=== PATIENT | female | born 1930 | race Caucasian/White ===

== ENCOUNTER → 2016-10-25 | Outpatient (CLI) | payer MEDICARE, OTHER ==
[2016-06-21 18:05] VITALS: BP 142/76
[~2016-10-25] MED LIST: ACET325T9 PO; ALEN70TA3 PO; ASPI81TA44 PO; CALC600T PO; CHOL100013 PO; CIPR500T94 PO; DIGO125T PO; DOCU-27 PO; DOXA2TAB PO; GABA-585 PO; GUAI118L3 PO; HYDR-2666 PO; HYDROCORTISONE28 G1 TP; JOINT FLEX TOP; LIDO700A4 TD; MAGN400O4 PO; METO100T2 PO; MULT-658 PO; NITR100C62 PO; SIME125T17 PO; TEMA15CA PO; WARF4TAB PO; [UNRECOGNIZED DRUG - CODE] PO
[2016-10-25 10:34] LABS: BACTERIA,URINE FEW /HPF (0-FEW); BILIRUBIN,URINE NEG (NEG); CLARITY,URINE HAZY; COLOR,URINE YELLOW; GLUCOSE,URINE NEG (NEG); HYALINE CASTS, URINE OCC /HPF; NITRITE,URINE NEG (NEG); SQUAMOUS EPITHELIAL CELL,UR OCC /LPF; UROBILINOGEN,URINE 0.2 mg/dL (0.2 mg/dL)
== END | disposition home or self-care (01) ==
LOC: SPEC 10:19
PROVIDERS: ATTEND Internal Medicine
DX: N39.0 Urinary tract infection, site not specified (principal)
CPT/HCPCS: 81001; 87086

== ENCOUNTER → 2016-11-13 | Outpatient (CLI) | payer MEDICARE, OTHER ==
[2016-06-21 18:05] VITALS: BP 142/76
== END | disposition home or self-care (01) ==
LOC: SPEC 12:57
PROVIDERS: ATTEND Internal Medicine
DX: E63.9 Nutritional deficiency, unspecified (principal)
CPT/HCPCS: 36415; 82306

== ENCOUNTER → 2016-12-07 | Outpatient (CLI) | payer MEDICARE, OTHER ==
[2016-06-21 18:05] VITALS: BP 142/76
[~2016-12-07] MED LIST changes: +DOCU-109 PO; -DOCU-27 PO; -HYDR-2666 PO; +HYDR-2758 PO; -MAGN400O4 PO; +MAGN400O7 PO; -WARF4TAB PO; +WARF4TAB68 PO
[2016-12-07 15:24] LABS: BILIRUBIN,URINE NEG (NEG); CLARITY,URINE TURBID; COLOR,URINE YELLOW; GLUCOSE,URINE NEG (NEG)
[2016-12-07 15:25] LABS: BACTERIA,URINE MANY /HPF (0-FEW); NITRITE,URINE NEG (NEG); UROBILINOGEN,URINE 0.2 mg/dL (0.2 mg/dL); WBC,URINE TNTC /HPF (0-4)
== END | disposition home or self-care (01) ==
LOC: SPEC 14:55
PROVIDERS: ATTEND Internal Medicine
DX: N39.0 Urinary tract infection, site not specified (principal)
CPT/HCPCS: 81001; 87086

== ENCOUNTER → 2016-12-13 | Outpatient (CLI) | payer MEDICARE, OTHER ==
[2016-06-21 18:05] VITALS: BP 142/76
== END | disposition home or self-care (01) ==
LOC: SPEC 16:54
PROVIDERS: ATTEND Internal Medicine
DX: N18.9 Chronic kidney disease, unspecified (principal); N32.81 Overactive bladder; R33.9 Retention of urine, unspecified
CPT/HCPCS: 84443

== ENCOUNTER → 2016-12-18 | Outpatient (CLI) | payer MEDICARE, OTHER ==
[2016-06-21 18:05] VITALS: BP 142/76
--- NOTE | 2016-12-18 11:35 | RAD ---
Renal ultrasound, 12/18/2016: History: Low-grade fever, back pain The right kidney measures 9.7 cm in length while the left kidney measures 10.1 cm. There is no evidence of hydronephrosis. A 7.3 cm simple cyst is noted anteriorly in the right kidney. It is of similar size when compared to study of 05/22/2016. No other renal mass is seen. Limited views of urinary bladder show no abnormality. IMPRESSION: 1. Moderate sized right renal cyst. 2. The kidneys are otherwise unremarkable.
== END | disposition home or self-care (01) ==
LOC: US 09:40
PROVIDERS: ATTEND Internal Medicine
DX: N28.1 Cyst of kidney, acquired (principal); M54.9 Dorsalgia, unspecified; R50.9 Fever, unspecified
CPT/HCPCS: 76770

== ENCOUNTER → 2016-12-19 | Outpatient (CLI) | payer MEDICARE, OTHER ==
[2016-06-21 18:05] VITALS: BP 142/76
--- NOTE | 2016-12-20 11:45 | CARD ---
APPROVED REPORT EXAM: Two-dimensional and M-mode echocardiogram with Doppler and color Doppler. Other Information Quality : Average Rhythm : Atrial Fibrillation INDICATION Hyper inflation of lungs with enlargement of the heart 2D DIMENSIONS Left Atrium(2D)4.9 (1.6-4.0cm)IVSd1.3 (0.7-1.1cm) Aortic Root(2D)2.3 (2.0-3.7cm)LVDd3.5 (3.9-5.9cm) LVOT Diameter1.8 (1.8-2.4cm)PWd1.2 (0.7-1.1cm) LVDs2.4 (2.5-4.0cm)FS (%) 31.5 % SV31.3 mlLVEF(%)60.5 (>50%) Aortic Valve AoV Peak Jonny.137.9cm/sAoV VTI26.2cm AO Peak GR.7.6mmHgLVOT Peak Jonny.87.1cm/s LVOT VTI 17.90cmAO Mean GR.4mmHg ROSELIA (VMAX)1.23zq5RSF (VTI)1.83cm2 Mitral Valve MV E Ebqocgxz87.2cm/sMV DECEL [id number] MV A Velocity0.1cm/sMV AAR29zi E/A Mvdpy428.0MVA (PHT)5.10cm2 Tricuspid Valve TR P. Hpdqhxfz540ug/sRAP [id number] TR Peak Gr.38xqSxMFOM43knIj LEFT VENTRICLE The left ventricle is normal size. There is borderline to mild concentric left ventricular hypertroph y. Left ventricle systolic function is normal. The Ejection Fraction is 55-60%. There is normal LV se gmental wall motion. Unable to assess diastolic function. There is no ventricular septal defect visua lized. RIGHT VENTRICLE The right ventricle is normal size. The right ventricular systolic function is normal. ATRIA The left atrium is moderately dilated. The right atrium is severely dilated. The interatrial septum i s intact with no evidence for an atrial septal defect or patent foramen ovale as noted on 2-D or Dopp ler imaging. AORTIC VALVE The aortic valve is mildly to moderately calcified. The aortic valve is trileaflet. Doppler and Color Flow revealed no significant aortic regurgitation. There is no significant aortic valvular stenosis. MITRAL VALVE Mitral annular calcification is mild. There is no mitral valve stenosis. Doppler and Color Flow revea led mild mitral regurgitation. TRICUSPID VALVE The tricuspid valve is normal in structure. Doppler and Color Flow revealed moderate tricuspid regurg itation. The PA pressure was estimated at 42 mmHg. There is no tricuspid valve stenosis. PULMONIC VALVE The pulmonic valve is not well visualized. Doppler and Color Flow revealed mild pulmonic valvular reg urgitation. There is no pulmonic valvular stenosis. GREAT VESSELS The aortic root is normal in size. The IVC is normal in size and collapses <50% with inspiration. PERICARDIAL EFFUSION There is no evidence of significant pericardial effusion. Critical Notification Critical Value: No <Conclusion> Left ventricle systolic function is normal. The Ejection Fraction is 55-60%. The left atrium is moderately dilated. The right atrium is severely dilated. Mild mitral regurgitation. Moderate tricuspid regurgitation. The PA pressure was estimated at 42 mmHg. There is no evidence of significant pericardial effusion.
== END | disposition home or self-care (01) ==
LOC: ECHO 13:41
PROVIDERS: ATTEND Internal Medicine
DX: I08.1 Rheumatic disorders of both mitral and tricuspid valves (principal); I51.7 Cardiomegaly; J98.4 Other disorders of lung; J98.11 Atelectasis; I70.0 Atherosclerosis of aorta; I72.9 Aneurysm of unspecified site; R41.82 Altered mental status, unspecified; M41.85 Other forms of scoliosis, thoracolumbar region; M40.294 Other kyphosis, thoracic region
CPT/HCPCS: 93306

== ENCOUNTER → 2016-12-20 | Outpatient (CLI) | payer MEDICARE, OTHER ==
[2016-06-21 18:05] VITALS: BP 142/76
[2016-12-20 08:00] LABS: BACTERIA,URINE 0 /HPF (0-FEW); BILIRUBIN,URINE NEG (NEG); CLARITY,URINE HAZY; COLOR,URINE YELLOW; GLUCOSE,URINE NEG (NEG); NITRITE,URINE NEG (NEG); RBC,URINE OCC /HPF (0-2); SQUAMOUS EPITHELIAL CELL,UR FEW /LPF; UROBILINOGEN,URINE 0.2 mg/dL (0.2 mg/dL)
== END | disposition home or self-care (01) ==
LOC: SPEC 07:00
PROVIDERS: ATTEND Internal Medicine
DX: N39.0 Urinary tract infection, site not specified (principal); Z87.440 Personal history of urinary (tract) infections
CPT/HCPCS: 81001; 87086

== ENCOUNTER → 2016-12-21 | Outpatient (CLI) | payer MEDICARE, OTHER ==
[2016-06-21 18:05] VITALS: BP 142/76
[2016-12-21 12:53] LABS: CALCIUM 9.4 mg/dL (8.5-10.1); CREATININE 1.1 mg/dL (0.6-1.0); GFR 47.2; POTASSIUM 3.9 mmol/L (3.5-5.1)
== END | disposition home or self-care (01) ==
LOC: SPEC 12:29
PROVIDERS: ATTEND Internal Medicine
DX: N18.9 Chronic kidney disease, unspecified (principal)
CPT/HCPCS: 36415; 80048; 85610

== ENCOUNTER → 2017-02-25 | Outpatient (CLI) | payer MEDICARE, OTHER ==
[2016-06-21 18:05] VITALS: BP 142/76
[2017-02-25 17:14] LABS: DIG 0.9 ng/dL (0.9-2.0)
== END | disposition home or self-care (01) ==
LOC: SPEC 16:48
PROVIDERS: ATTEND Internal Medicine
DX: I48.91 Unspecified atrial fibrillation (principal)
CPT/HCPCS: 36415; 80162

== ENCOUNTER → 2017-03-26 | Outpatient (CLI) | payer MEDICARE, OTHER ==
[2016-06-21 18:05] VITALS: BP 142/76
== END | disposition home or self-care (01) ==
LOC: SPEC 13:44
PROVIDERS: ATTEND Internal Medicine
DX: I48.91 Unspecified atrial fibrillation (principal); E55.9 Vitamin D deficiency, unspecified; I10 Essential (primary) hypertension
CPT/HCPCS: 36415; 82306; 85610

== ENCOUNTER → 2017-06-22 | Outpatient (CLI) | payer MEDICARE, OTHER ==
[2016-06-21 18:05] VITALS: BP 142/76
[2017-06-22 21:25] LABS: BASO % 1 % (0-3); EOS # 0.6 x10^3/uL (0.0-0.7); EOS % 7 % (0-3); HEMOGLOBIN 11.7 g/dL (12.0-15.5); LYMPH # 2.2 x10^3/uL (1.0-4.8); LYMPH % 25 % (24-48); MEAN CORPUSCULAR HEMOGLOBIN 32 pg (25-35); MEAN CORPUSCULAR HGB CONC 34 g/dL (31-37); MEAN CORPUSCULAR VOLUME 96 fL (79-100); MONO # 0.8 x10^3/uL (0.0-1.1); MONO % 10 % (0-9); NEUT % 58 % (31-73); PLATELET COUNT 216 x10^3/uL (140-400); RED BLOOD COUNT 3.64 x10^6/uL (3.50-5.40); RED CELL DISTRIBUTION WIDTH 14.9 % (11.5-14.5); WHITE BLOOD COUNT 8.6 x10^3/uL (4.0-11.0)
[2017-06-22 21:27] LABS: ALBUMIN 3.6 g/dL (3.4-5.0); ALBUMIN/GLOBULIN RATIO 0.9 (1.0-1.7); CALCIUM 9.2 mg/dL (8.5-10.1); GFR 52.7; POTASSIUM 3.8 mmol/L (3.5-5.1); TOTAL BILIRUBIN 0.2 mg/dL (0.2-1.0); TOTAL PROTEIN 7.5 g/dL (6.4-8.2)
[2017-06-22 21:51] LABS: BACTERIA,URINE FEW /HPF (0-FEW); BILIRUBIN,URINE NEG (NEG); CLARITY,URINE HAZY; COLOR,URINE YELLOW; GLUCOSE,URINE NEG (NEG); NITRITE,URINE NEG (NEG); RBC,URINE >40 /HPF (0-2); SQUAMOUS EPITHELIAL CELL,UR FEW /LPF; UROBILINOGEN,URINE 0.2 mg/dL (0.2 mg/dL); WBC,URINE >40 /HPF (0-4)
== END | disposition home or self-care (01) ==
LOC: SPEC 18:10
PROVIDERS: ATTEND Internal Medicine
DX: I12.9 Hypertensive chronic kidney disease with stage 1 through stage 4 chronic kidney disease, or unspecified chronic kidney disease (principal); N18.9 Chronic kidney disease, unspecified; N28.1 Cyst of kidney, acquired
CPT/HCPCS: 36415; 80053; 81001; 85025; 87086

== ENCOUNTER → 2017-07-08 | Outpatient (CLI) | payer MEDICARE, OTHER ==
[2016-06-21 18:05] VITALS: BP 142/76
[~2017-07-08] MED LIST changes: -METO100T2 PO; +METO100T7 PO
== END | disposition home or self-care (01) ==
LOC: SPEC 10:22
PROVIDERS: ATTEND Internal Medicine
DX: I82.719 Chronic embolism and thrombosis of superficial veins of unspecified upper extremity (principal); Z79.01 Long term (current) use of anticoagulants
CPT/HCPCS: 36415; 85610

== ENCOUNTER → 2017-07-22 | Outpatient (CLI) | payer MEDICARE, OTHER ==
[2016-06-21 18:05] VITALS: BP 142/76
== END | disposition home or self-care (01) ==
LOC: SPEC 10:34
PROVIDERS: ATTEND Internal Medicine
DX: I82.719 Chronic embolism and thrombosis of superficial veins of unspecified upper extremity (principal); I48.91 Unspecified atrial fibrillation; Z79.01 Long term (current) use of anticoagulants
CPT/HCPCS: 36415; 85610

== ENCOUNTER → 2017-07-25 | Outpatient (CLI) | payer MEDICARE, OTHER ==
[2016-06-21 18:05] VITALS: BP 142/76
[2017-07-25 13:05] LABS: BASO % 0 % (0-3); EOS # 0.6 x10^3/uL (0.0-0.7); EOS % 6 % (0-3); HEMOGLOBIN 11.1 g/dL (12.0-15.5); LYMPH # 2.6 x10^3/uL (1.0-4.8); LYMPH % 24 % (24-48); MEAN CORPUSCULAR HEMOGLOBIN 31 pg (25-35); MEAN CORPUSCULAR HGB CONC 33 g/dL (31-37); MEAN CORPUSCULAR VOLUME 95 fL (79-100); MONO % 9 % (0-9); NEUT # 6.8 x10^3uL (1.8-7.7); NEUT % 62 % (31-73); PLATELET COUNT 234 x10^3/uL (140-400); RED BLOOD COUNT 3.59 x10^6/uL (3.50-5.40)
[2017-07-25 13:08] LABS: ALBUMIN 3.4 g/dL (3.4-5.0); ALBUMIN/GLOBULIN RATIO 0.9 (1.0-1.7); CALCIUM 9.4 mg/dL (8.5-10.1); CREATININE 1.3 mg/dL (0.6-1.0); GFR 38.9; POTASSIUM 3.8 mmol/L (3.5-5.1); TOTAL BILIRUBIN 0.3 mg/dL (0.2-1.0); TOTAL PROTEIN 7.3 g/dL (6.4-8.2)
== END | disposition home or self-care (01) ==
LOC: SPEC 12:35
PROVIDERS: ATTEND Internal Medicine
DX: R41.0 Disorientation, unspecified (principal); Z87.440 Personal history of urinary (tract) infections
CPT/HCPCS: 36415; 80053; 84443; 85025

== ENCOUNTER → 2017-07-26 | Outpatient (CLI) | payer MEDICARE, OTHER ==
[2016-06-21 18:05] VITALS: BP 142/76
[2017-07-26 18:36] LABS: BACTERIA,URINE 0 /HPF (0-FEW); BILIRUBIN,URINE NEG (NEG); CLARITY,URINE CLOUDY; COLOR,URINE YELLOW; GLUCOSE,URINE NEG (NEG); NITRITE,URINE NEG (NEG); RBC,URINE TNTC /HPF (0-2); SQUAMOUS EPITHELIAL CELL,UR FEW /LPF; UROBILINOGEN,URINE 0.2 mg/dL (0.2 mg/dL)
== END | disposition home or self-care (01) ==
LOC: SPEC 16:50
PROVIDERS: ATTEND Internal Medicine
DX: I12.9 Hypertensive chronic kidney disease with stage 1 through stage 4 chronic kidney disease, or unspecified chronic kidney disease (principal); N18.4 Chronic kidney disease, stage 4 (severe); R41.0 Disorientation, unspecified; Z87.440 Personal history of urinary (tract) infections
CPT/HCPCS: 81001

== ENCOUNTER → 2017-08-05 | Outpatient (CLI) | payer MEDICARE, OTHER ==
[2016-06-21 18:05] VITALS: BP 142/76
== END | disposition home or self-care (01) ==
LOC: SPEC 09:23
PROVIDERS: ATTEND Internal Medicine
DX: I48.91 Unspecified atrial fibrillation (principal); I82.719 Chronic embolism and thrombosis of superficial veins of unspecified upper extremity
CPT/HCPCS: 36415; 85610

== ENCOUNTER → 2017-08-13 | Outpatient (CLI) | payer MEDICARE, OTHER ==
[2016-06-21 18:05] VITALS: BP 142/76
== END | disposition home or self-care (01) ==
LOC: SPEC 09:44
PROVIDERS: ATTEND Internal Medicine
DX: E63.9 Nutritional deficiency, unspecified (principal); E55.9 Vitamin D deficiency, unspecified
CPT/HCPCS: 82306

== ENCOUNTER → 2017-08-28 | Outpatient (CLI) | payer MEDICARE, OTHER ==
[2016-06-21 18:05] VITALS: BP 142/76
[2017-08-28 12:20] LABS: DIG 0.9 ng/dL (0.9-2.0)
== END | disposition home or self-care (01) ==
LOC: SPEC 11:46
PROVIDERS: ATTEND Internal Medicine
DX: I48.91 Unspecified atrial fibrillation (principal)
CPT/HCPCS: 36415; 80162

== ENCOUNTER → 2017-09-24 | Outpatient (CLI) | payer MEDICARE, OTHER ==
[2016-06-21 18:05] VITALS: BP 142/76
== END | disposition home or self-care (01) ==
LOC: SPEC 09:39
PROVIDERS: ATTEND Internal Medicine
DX: E63.9 Nutritional deficiency, unspecified (principal); E55.9 Vitamin D deficiency, unspecified
CPT/HCPCS: 82306